=== PATIENT | female | born 2000 | race Hispanic/Latino ===

== ENCOUNTER 2024-07-09 20:04 | Emergency (ER) | payer OTHER ==
[~2024-07-09] VITALS: Ht 157.5 cm; Wt 54.0 kg
[2024-07-09 20:16] VITALS: TEMP 98.6
[2024-07-09] MEDS: ACETAMINOPHEN 325 MG TAB PO STA (20:56)
[2024-07-09 23:07] VITALS: PULSE 87; RESP 18; O2SAT 100
[2024-07-09] MEDS ORDERED: ULTRAM 50MG50 MG PO (23:07)
[2024-07-10] MEDS ORDERED: KETOROLAC TROME10 MG PO (00:23)
[2024-07-10] MEDS ORDERED: PREDNISONE20 MG PO (19:09)
== END 2024-07-09 23:00 | disposition home or self-care (01) ==
LOC: ER 20:10
DX: M54.9 Dorsalgia, unspecified (principal); V43.52XA Car driver injured in collision with other type car in traffic accident, initial encounter; Y92.488 Other paved roadways as the place of occurrence of the external cause
CPT/HCPCS: 72100; 81025; 99283